=== PATIENT | male | born 1995 | race Caucasian/White ===

== ENCOUNTER 2023-10-12 20:54 | Emergency (ER) | payer MEDICAID, OTHER ==
[~2023-10-12] VITALS: Ht 175.3 cm; Wt 80.0 kg
[~2023-10-12 20:54] MED LIST: LITH600C5 PO; QUET300T2 PO
[2023-10-12 20:56] VITALS: TEMP 98.7
[2023-10-12 21:40] VITALS: BP 148/92; PULSE 92; RESP 17
[2023-10-12] MEDS ORDERED: GUAIFDM PO (22:01)
[2023-10-12] MEDS ORDERED: HYDR30CR3 TP (22:01)
[2023-10-12] MEDS ORDERED: ACET-66 PO (22:01)
== END 2023-10-12 22:35 | disposition home or self-care (01) ==
LOC: EMS 20:57
DX: J06.9 Acute upper respiratory infection, unspecified (principal); R23.8 Other skin changes; K64.9 Unspecified hemorrhoids
CPT/HCPCS: 99283